=== PATIENT | female | born 2000 | race Caucasian/White ===

== ENCOUNTER 2023-07-14 11:12 | Emergency (ER) | payer MEDICAID ==
[~2023-07-14] VITALS: Ht 160 cm; Wt 78.0 kg
[2023-07-14 11:18] VITALS: O2SAT 100
[2023-07-14] MEDS ORDERED: ACETAMINOPHEN WITH CODEINE 300/30MG TABLET PO ONE (12:00)
[2023-07-14] MEDS ORDERED: LIDO700A15 TP (13:03)
[2023-07-14] MEDS ORDERED: CYCL5TAB MT (13:03)
[2023-07-14] MEDS ORDERED: TOPUD MT (13:03)
[2023-07-14 14:29] LABS: CLARITY URINE CLOUDY (CLEAR); COLOR URINE YELLOW (YELLOW); GLUCOSE URINE NEGATIVE (NEGATIVE); KETONES URINE NEGATIVE (NEGATIVE); LEUKOCYTE ESTERASE URINE 1+ (NEGATIVE); NITRITE URINE NEGATIVE (NEGATIVE); OCCULT BLOOD URINE NEGATIVE (NEGATIVE); PH URINE 5.5 (4.5-8.0); PROTEIN URINE NEGATIVE (NEGATIVE); SPECIFIC GRAVITY URINE 1.031 (1.005-1.030); UROBILINOGEN URINE 0.2 E.U./dL (0.2-1.0)
[2023-07-14 14:52] LABS: MUCUS URINE 1+ /lpf (< = 2+); SQUAMOUS EPITHELIAL CELL URINE 3+ /lpf (RARE/1+)
[2023-07-14 14:53] LABS: BACTERIA URINE 2+
[2023-07-14 14:54] LABS: RBC URINE NONE SEEN /hpf (0-2); WBC URINE 0-2 /hpf (0-2)
[2023-07-14 16:02] VITALS: BP 106/71; PULSE 78; RESP 20; TEMP 98.5
== END 2023-07-14 16:04 | disposition home or self-care (01) ==
LOC: ER 11:25
DX: M62.830 Muscle spasm of back (principal); Z88.6 Allergy status to analgesic agent
CPT/HCPCS: 71045; 81003; 81025; 99284